=== PATIENT | male | born 1965 | race Two or more races ===

== ENCOUNTER 2019-08-06 21:03 | Emergency (ER) | payer SELFPAY ==
[~2019-08-06] VITALS: Ht 162.6 cm; Wt 77.0 kg
[2019-08-06] MEDS ORDERED: KETOROLAC 60MG/2ML VIAL IM ONE (22:00)
[2019-08-06] MEDS ORDERED: MORPHINE SULFATE 10 MG/ML CPJ IV ONE (22:00)
[2019-08-07 00:10] VITALS: BP 127/70
== END 2019-08-07 00:13 | disposition home or self-care (01) ==
LOC: ER 21:03
DX: S40.012A Contusion of left shoulder, initial encounter (principal); S20.212A Contusion of left front wall of thorax, initial encounter; S90.32XA Contusion of left foot, initial encounter; S80.12XA Contusion of left lower leg, initial encounter; I10 Essential (primary) hypertension; E11.9 Type 2 diabetes mellitus without complications; V43.93XA Unspecified car occupant injured in collision with pick-up truck in traffic accident, initial encounter; Y93.9 Activity, unspecified; Y92.410 Unspecified street and highway as the place of occurrence of the external cause
CPT/HCPCS: 71101; 73030; 73552; 96372; 96374; 99283; J1885; J2270; Z7610; A4565

== ENCOUNTER 2019-08-12 13:47 | Emergency (ER) | payer SELFPAY ==
[~2019-08-12] VITALS: Ht 165.1 cm; Wt 90.0 kg
[2019-08-12 14:17] VITALS: BP 137/81
== END 2019-08-12 17:19 | disposition left against medical advice (07) ==
LOC: ER 13:47
DX: Z53.21 Procedure and treatment not carried out due to patient leaving prior to being seen by health care provider (principal)